=== PATIENT | female | born 1980 | race Caucasian/White ===

== ENCOUNTER 2020-08-13 17:39 | Emergency (ER) | payer BC, OTHER ==
[~2020-08-13] VITALS: Ht 167.6 cm; Wt 58.5 kg
[2020-08-13] MEDS ORDERED: SODIUM CHLORIDE 0.9% 1,000ML IVBOLUS ONE ×2 (18:00→19:30)
[2020-08-13] MEDS ORDERED: PROCHLORPERAZINE 5 MG/ML, 2ML IVPush ONE ×2 (18:00→19:30)
[2020-08-13] MEDS ORDERED: PROCHLORPERAZINE 5 MG/ML, 2ML ONE ×2 (18:23→19:31)
[2020-08-13 18:24] LABS: BASOPHILS % (AUTO) 1 % (0-1); EOSINOPHILS % (AUTO) 0 % (1-7); LYMPHOCYTES % (AUTO) 8 % (22-44); MEAN CORPUSCULAR HEMOGLOBIN 29.7 pg (27.0-34.8); MEAN CORPUSCULAR HGB CONC 33.4 g/dL (32.4-35.8); MEAN PLATELET VOLUME 7.3 fL (7.4-10.4); MONOCYTES % (AUTO) 3 % (2-9); NEUTROPHILS % (AUTO) 88 % (42-75); PLATELET COUNT 346 x10^3/uL (130-400); RED BLOOD COUNT 4.53 x10^6/uL (3.82-5.3); RED CELL DISTRIBUTION WIDTH 14.6 % (9.6-15.2)
[2020-08-13 18:27] LABS: ANION GAP 9 mmol/L (5-15); CALCIUM 8.7 mg/dL (8.5-10.1); CHLORIDE 110 mmol/L (98-107); CREATININE 0.95 mg/dL (0.55-1.02); MD NO
[2020-08-13 18:29] LABS: CREATINE KINASE, TOTAL 130 U/L (26-192)
--- NOTE | 2020-08-13 19:03 | NUR ---
report from day paolo Tavarez. assuming care of pt. pt resting in bed w/ c/ nausea. at bedside. vss.
[2020-08-13] MEDS ORDERED: DEXAMETHASONE 4 MG/ML, 1ML IVPush ONE (19:30)
[2020-08-13] MEDS ORDERED: DEXAMETHASONE 4 MG/ML, 5ML ONE (19:31)
--- NOTE | 2020-08-13 19:40 | NUR ---
pt medicated per emar. vss. farazn.
--- NOTE | 2020-08-13 19:43 | NUR ---
Note omer in EDM - 08/13/20 at 1945 by BREANNE PT BACK FROM BATHROOM WITH STEADY GAIT. DR. GARCIA AT BEDSIDE TO DISSCUSS POC. VSS. PT MEDICATED WITH PER EMAR FOR PAIN.
--- NOTE | 2020-08-13 20:27 | NUR ---
pt reports nausea better but is still feeling dizzy. vss.
--- NOTE | 2020-08-13 20:49 | NUR ---
DR. GARCIA DISSCUSSED POC AND D/C WITH PT. PT TOLERATING STANDING AND AMBULATING AROUND ROOM.
[2020-08-13 21:09] VITALS: BP 127/44
--- NOTE | 2020-08-13 21:10 | NUR ---
DISCHARGED HOME VIA WHEELCHAIR IN COMPANY OF SPOUSE REVIEWED POC- TEACH BACK SUCCESSFUL
== END 2020-08-13 21:11 | disposition home or self-care (01) ==
LOC: ED 21:05
DX: R42 Dizziness and giddiness (principal); R11.2 Nausea with vomiting, unspecified; R94.31 Abnormal electrocardiogram [ECG] [EKG]
CPT/HCPCS: 36415; 80048; 82550; 83735; 85025; 93005; 96374; 96375; 96376; 99285; J0780; J1100; J7030